=== PATIENT | female | born 2005 | race Caucasian/White ===

== ENCOUNTER 2025-01-14 23:26 | Emergency (ER) | payer OTHER ==
[~2025-01-14] VITALS: Ht 170.2 cm; Wt 97.5 kg
[~2025-01-14 23:26] MED LIST: LEVE500 PO
[2025-01-15] MEDS ORDERED: Cleocin HCl150 MG PO (00:15)
== END 2025-01-15 00:25 | disposition home or self-care (01) ==
LOC: ER 23:26
DX: K08.89 Other specified disorders of teeth and supporting structures (principal); Z88.0 Allergy status to penicillin; Z88.1 Allergy status to other antibiotic agents; Z79.2 Long term (current) use of antibiotics
CPT/HCPCS: 99282; A9270